=== PATIENT | female | born 1995 | race Caucasian/White ===

== ENCOUNTER 2017-03-13 17:34 | Emergency (ER) | payer OTHER ==
[~2017-03-13] VITALS: Ht 160 cm; Wt 111.9 kg
[~2017-03-13 17:34] MED LIST: AMOXICILLIN500 M1 PO; CEPHALEXIN500 MG PO; IBUPROFEN800 MG PO; KEFLEX500 MG PO; MOTRIN800 MG PO; TYLENOL EXTRA500 MG PO; VICODIN,LORT1 TABLET PO; [UNRECOGNIZED DRUG - OTHER] MM
[2017-03-13 19:07] LABS: ADD MIUA? YES; BILIRUBIN NEGATIVE; BLOOD NEGATIVE; COLOR YELLOW ((YELLOW)); GLUCOSE (STRIP) NEGATIVE; KETONES NEGATIVE; LEUKOCYTES TRACE; NITRITE POSITIVE; PROTEIN (STRIP) NEGATIVE; SPECIFIC GRAVITY 1.016 (1.000-1.030); UROBILINOGEN 0.2 MG/DL (0.2-1.0)
[2017-03-13 19:16] LABS: BACTERIA RARE /HPF; EPITHELIAL CELLS 1+ /HPF; MUCUS TRACE /LPF; RED BLOOD CELLS 0-5 /HPF (0-5)
[2017-03-13] MEDS ORDERED: KEFLEX500 MG PO (19:33)
[2017-03-13] MEDS ORDERED: VENTOLIN HFA18 GM IH (19:33)
[2017-03-13] MEDS ORDERED: NAPROXEN500 MG PO (19:33)
[2017-03-13 19:57] VITALS: BP 110/84
== END 2017-03-13 20:08 | disposition home or self-care (01) ==
LOC: EME 17:34
PROVIDERS: Nurse Practitioner Family
DX: R05 Cough (principal); R51 Headache; N39.0 Urinary tract infection, site not specified; Z20.2 Contact with and (suspected) exposure to infections with a predominantly sexual mode of transmission; F17.200 Nicotine dependence, unspecified, uncomplicated
CPT/HCPCS: 81003; 94640; 99281; 99284; J0696

== ENCOUNTER 2017-06-27 19:54 | Emergency (ER) | payer OTHER ==
[~2017-06-27] VITALS: Ht 160 cm; Wt 114.3 kg
[~2017-06-27 19:54] MED LIST changes: +NAPROXEN500 MG PO; +VENTOLIN HFA18 GM IH
[2017-06-27] MEDS ORDERED: TESSALON200 MG PO (21:28)
[2017-06-27] MEDS ORDERED: VENTOLIN HFA18 GM IH (21:28)
[2017-06-27 21:49] VITALS: BP 122/67
== END 2017-06-27 21:50 | disposition home or self-care (01) ==
LOC: EME 19:54
DX: J02.9 Acute pharyngitis, unspecified (principal); R05 Cough; F17.200 Nicotine dependence, unspecified, uncomplicated
CPT/HCPCS: 87651 90; 99281; 99284

== ENCOUNTER 2017-06-29 13:16 | Emergency (ER) | payer OTHER ==
[~2017-06-29] VITALS: Ht 160 cm; Wt 114.1 kg
[~2017-06-29 13:16] MED LIST changes: +TESSALON200 MG PO
[2017-06-29] MEDS ORDERED: MOBIC15 MG PO (15:01)
[2017-06-29] MEDS ORDERED: MEDROL DOSEPAK4 MG PO (15:01)
[2017-06-29 15:29] VITALS: BP 137/66
== END 2017-06-29 15:48 | disposition home or self-care (01) ==
LOC: EME 13:16
DX: M46.1 Sacroiliitis, not elsewhere classified (principal); M54.5 Low back pain; M25.551 Pain in right hip; F17.200 Nicotine dependence, unspecified, uncomplicated
CPT/HCPCS: 72100; 73502; 99281; 99282

== ENCOUNTER 2017-09-13 12:48 | Emergency (ER) | payer OTHER ==
[~2017-09-13] VITALS: Ht 160 cm; Wt 115.8 kg
[~2017-09-13 12:48] MED LIST changes: +MEDROL DOSEPAK4 MG PO; +MOBIC15 MG PO
[2017-09-13 12:50] VITALS: BP 142/90
[2017-09-13 13:08] LABS: SOURCE URINE
[2017-09-13 13:18] LABS: APPEARANCE SL.HAZY ((CLEAR)); BILIRUBIN NEGATIVE; BLOOD NEGATIVE; COLOR YELLOW ((YELLOW)); GLUCOSE (STRIP) NEGATIVE; KETONES NEGATIVE; LEUKOCYTES NEGATIVE; NITRITE NEGATIVE; PROTEIN (STRIP) 30; SPECIFIC GRAVITY 1.026 (1.000-1.030)
[2017-09-13 13:28] LABS: BACTERIA RARE /HPF; CALCIUM OXALATE CRYSTALS 1+ /HPF; EPITHELIAL CELLS RARE /HPF; MUCUS 1+ /LPF; RED BLOOD CELLS 0-5 /HPF (0-5); UCUL ADDED? NO; WHITE BLOOD CELLS 0-5 /HPF (0-5)
[2017-09-15 12:51] LABS: CHLAMYDIA TRACHOMATIS NEGATIVE; NEISSERIA GONORRHOEAE NEGATIVE
== END 2017-09-13 15:23 | disposition home or self-care (01) ==
LOC: EME 12:48
DX: R09.89 Other specified symptoms and signs involving the circulatory and respiratory systems (principal); R52 Pain, unspecified; Z53.21 Procedure and treatment not carried out due to patient leaving prior to being seen by health care provider
CPT/HCPCS: 81003; 81025; 87491; 87591